=== PATIENT | female | born 1950 | race Caucasian/White ===

== ENCOUNTER 2016-12-18 08:21 | Emergency (ER) | payer OTHER ==
[~2016-12-18] VITALS: Ht 154.9 cm; Wt 80.3 kg
--- NOTE | 2016-12-18 08:58 | ED AMS/SEIZURE/WEAK/DIZZY ---
History of Present Illness General Chief Complaint: Dizziness Stated Complaint: NOT FEELING WELL, DIZZINESS Source: patient Exam Limitations: no limitations Vital Signs & Intake/Output Vital Signs & Intake/Output Vital Signs Date Time Temp Pulse Resp B/P Pulse O2 O2 Flow FiO2 Ox Delivery Rate 12/18 852 98 Room Air 12/18 836 54 182/82 12/18 828 97.7 59 18 170/82 100 Room Air Allergies Coded Allergies: No Known Allergies (12/18/16) Reconcile Medications Alendronate Sodium 70 MG TABLET 1 TAB PO QW OSTEOPOROSIS (Reported) in the morning, at least 30 minutes before the first food, beverage, or medication of the day Atorvastatin Calcium 20 MG TABLET 1 TAB PO DAILY HTN (Reported) Ciprofloxacin HCl (Cipro) 250 MG TABLET 1 TAB PO BID infection Hydroxyzine HCl 25 MG TABLET 1 TAB PO PRN SLEEP (Reported) Lisinopril 5 MG TABLET 1 TAB PO DAILY HTN (Reported) Meclizine HCl 12.5 MG TABLET 1 TAB PO TID PRN DIZZINESS Metoprolol Succinate 25 MG TAB 1 TAB PO DAILY HTN (Reported) Triage Note: C/O DIZZINESS, WEAKNESS, NAUSEA, WITH VISION CHANGES, (EYES SENSITIVE TO LIGHT, DIZZY WHEN LOOKING DOWN) SINCE YESTERDAY. DENIES PAIN. FAMILY INTERPRETING, (SPEAKS [place]) Triage Nurses Notes Reviewed? yes Onset: Abrupt Duration: day(s): (few) Timing: recent history Injury Environment: home Severity: mild, moderate No Modifying Factors: none Associated Symptoms: dizziness, chills, urinary frequency HPI: 66 year old female presents feeling dizzy when looking down, nausea, no vimting. Positive chills. History of same in when she was in [place] a few years ago. H /O carotid stenosis 30% diagnosed in [place]. Patient endorses urinary frequency. Her daughter states that the last time she had this she also had a urinary tract infection. No hematuria. Past History Travel History Traveled to [place] past 21 day No Medical History Any Pertinent Medical History? see below for history Cardiovascular: hypertension, CAROTOD ARTERY BLOCKED Endocrine: PRE-DIABETES Surgical History Surgical History: non-contributory Psychosocial History What is your primary language Latvian Tobacco Use: Never used ETOH Use: denies use Family History Hx Contributory? No Review of Systems Review of Systems Constitutional: Reports: chills. Denies: fever. EENTM: Reports: no symptoms. Respiratory: Denies: cough, short of breath, sputum production. Cardiovascular: Denies: chest pain, palpitations. GI: Denies: abdominal pain. Genitourinary: Reports: frequency. Musculoskeletal: Reports: no symptoms. Skin: Reports: no symptoms. Neurological/Psychological: Reports: see HPI (dizzy). Denies: headache. Hematologic/Endocrine: Denies: bruising, bleeding, polyuria, polydipsia. Immunologic/Allergic: Denies: splenectomy. All Other Systems: Reviewed and Negative Physical Exam Physical Exam General Appearance: well developed/nourished, alert, awake, mild distress Head: atraumatic, normal appearance Eyes: Bilateral: normal appearance, PERRL, EOMI. Ears, Nose, Throat: normal pharynx, normal ENT inspection, hearing grossly normal, POSITIVE MARY [place] Neck: normal inspection, supple, full range of motion Respiratory: normal breath sounds, chest non-tender, no respiratory distress Cardiovascular: regular rate/rhythm Peripheral Pulses: 2+ radial (R), 2+ radial (L) Gastrointestinal: normal bowel sounds, soft, non-tender Extremities: normal range of motion Neurologic/Psych: no motor/sensory deficits, awake, alert, oriented x 3 Skin: intact, normal color, warm/dry Core Measures ACS in differential dx? No CVA/TIA Diagnosis: No Severe Sepsis Present: No Septic Shock Present: No Progress Differential Diagnosis: CVA/stroke, dehydration, electrolyte imbalance, intracranial Hem., intracranial mass/tumor, labrynthitis, sepsis, UTI/pyelo Plan of Care: Orders Procedure Date/time Status TROPONIN LEVEL 12/18 925 Complete COMPREHENSIVE METABOLIC PANEL 12/18 925 Complete CBC WITHOUT DIFFERENTIAL 12/18 925 Complete URINALYSIS 12/19 923 Complete EKG 12/18 830 Active Laboratory Tests 12/18/16 1000: Urinalysis LIGHT H, Urine Color YEL, Urine Clarity HAZY H, Urine pH 6.0, Ur Specific [place] 1.015, Urine Protein TRACE H, Urine Ketones NEG, Urine Nitrite NEG, Urine Bilirubin NEG, Urine Urobilinogen 0.2, Ur Leukocyte Esterase LARGE H , Ur Microscopic SEDIMENT EXAMINED, Urine RBC 15-25 H, Urine WBC > 75 H, Ur Epithelial Cells MANY H, Urine Bacteria FEW H, Urine Mucus MOD H, Urine Hemoglobin MOD H, Urine Glucose NEG 12/18/16 0928: Anion Gap 12, Estimated GFR > 60, BUN/Creatinine Ratio 28.6 H, Glucose 104 H, Calcium 9.8, Total Bilirubin 0.8, AST 19, ALT 29, Alkaline Phosphatase 104, Troponin I < 0.01, Total Protein 7.9, Albumin 4.5, Globulin 3.4, Albumin/ Globulin Ratio 1.3, CBC w Diff NO MAN DIFF REQ, RBC 5.04, MCV 85.8, MCH 28.2, RDW 13.7, MPV 8.2, Gran % 70.9, Lymphocytes % 22.3, Monocytes % 4.5, Eosinophils % 2.0, Basophils % 0.3, Absolute Granulocytes 6.8 H, Absolute Lymphocytes 2.2, Absolute Monocytes 0.4, Absolute Eosinophils 0.2, Absolute Basophils 0, PUBS MCHC 32.9 L SALINE, REGLAN, MECLIZINE ORDERED. 12/18/2016 12:07:38 PM Patient feeling better after IV Valium. Head CT is within normal limits. Prescription sent to her pharmacy. She will follow up with Dr. Gan ENT. (ANI WILLSON,KAPIL) Diagnostic Imaging: Viewed by Me: CT Scan. Discussed w/RAD: CT Scan. Radiology Impression: CT HEAD - NORMAL Initial ED EKG: NSR (INFERIOR T WAVE INVERSION) Departure Departure Time of Disposition: 1206 Disposition: HOME OR SELF CARE Condition: Stable Clinical Impression Primary Impression: UTI (urinary tract infection) Secondary Impressions: Vertigo Referrals: ITALIA WILLSON,MANASA Mulligan (PCP/Family) NATVIIDAD WILLSON,JANNY [place] Additional Instructions: Take the antibiotics and use the meclizine as needed for dizziness. Please follow-up with the ENT specialist listed as well as her primary care doctor. Departure Forms: Customer Survey General Discharge Information Prescriptions: Current Visit Scripts Ciprofloxacin HCl (Cipro) 1 TAB PO BID #14 TAB Meclizine HCl 1 TAB PO TID PRN DIZZINESS #30 TAB
[2016-12-18] MEDS ORDERED: HYDROXYZINE HCL25 M2 PO (09:02)
[2016-12-18] MEDS ORDERED: ALENDRONATE SOD70 M2 PO (09:03)
[2016-12-18] MEDS ORDERED: LISINOPRIL5 M1 PO (09:03)
[2016-12-18] MEDS ORDERED: ATORVASTATIN CA20 M1 PO (09:03)
[2016-12-18] MEDS ORDERED: METOPROLOL SUCC25 M1 PO (09:04)
[2016-12-18 09:52] LABS: ABSOLUTE BASOPHIL COUNT 0 /CUMM (0.0-0.2); ABSOLUTE EOSINOPHIL COUNT 0.2 /CUMM (0.0-0.7); ABSOLUTE GRANULOCYTE CT 6.8 /CUMM (1.4-6.5); ABSOLUTE LYMPH COUNT 2.2 /CUMM (1.2-3.4); ABSOLUTE MONOCYTE COUNT 0.4 /CUMM (0.10-0.60); BASOPHIL % 0.3 % (0.0-2.0); GRANULOCYTE % 70.9 % (42.2-75.2); HEMATOCRIT 43.2 % (37-47); MEAN CORPUSCULAR HGB 28.2 PG (27.0-31.0); MEAN CORPUSCULAR HGB CONC 32.9 G/DL (33.0-37.0); MEAN CORPUSCULAR VOLUME 85.8 FL (81.0-99.0); MEAN PLATELET VOLUME 8.2 FL (7.4-10.4); PLATELET COUNT 247 /CUMM (130-400); RBC DISTRIBUTION WIDTH 13.7 % (11.5-14.5); RED BLOOD CELL CT 5.04 /CUMM (4.20-5.40); WHITE BLOOD CELL COUNT 9.7 /CUMM (4.8-10.8)
--- NOTE | 2016-12-18 11:41 | CT SCAN REPORT ---
EXAMINATION: CT HEAD WITHOUT CONTRAST CLINICAL INFORMATION: Intractable dizziness. On aspirin. COMPARISON: None TECHNIQUE: Contiguous axial imaging was performed from the skull base to vertex without intravenous administration of contrast. DLP: 672.25 mGy-cm FINDINGS: There is no evidence of acute intracranial hemorrhage or territorial infarction. No abnormal mass effect or midline shift is seen. Canales to white matter differentiation is well preserved. No extra-axial fluid collections are identified. The ventricles are normal in size. Incidental note is made of tiny right basal ganglia calcifications. The osseous structures and soft tissues are normal. The mastoid air cells and visualized portions of the paranasal sinuses are well aerated. IMPRESSION: No acute intracranial pathology.
[2016-12-18] MEDS ORDERED: MECLIZINE HCL12.5 M1 PO (12:06)
[2016-12-18] MEDS ORDERED: CIPRO250 M1 PO (12:06)
[2016-12-18 12:10] VITALS: BP 128/63
== END 2016-12-18 12:26 ==
LOC: ERH 08:21
PROVIDERS: Emergency Medicine
DX: N39.0 Urinary tract infection, site not specified (principal); R42 Dizziness and giddiness
CPT/HCPCS: 81001; 93005; 93010; 96365; 96375; J2765; J3360